=== PATIENT | male | born 1995 | race Caucasian/White ===

== ENCOUNTER → 2017-03-17 | Outpatient (CLI) | payer BC ==
--- NOTE | 2017-03-17 13:10 | DIAGNOSTIC IMAGING REPORT ---
TESTICULAR ULTRASOUND HISTORY: VARICOCELE COMPARISON: None. FINDINGS: Right testis: There are no intratesticular masses. Normal color flow. No hydrocele. The epididymis is unremarkable. Left testis: There are no intratesticular masses. Normal color flow. No hydrocele. The epididymis is unremarkable. Small left-sided varicocele. IMPRESSION: Normal bilateral testes. Small left-sided varicocele. Electronically signed by: Anderson Mancera M.D. 03/17/2017 1:09 PM Dictated Date/Time: 03/17/2017 1:05 PM
== END | disposition home or self-care (01) ==
LOC: C.ULTR 12:35
PROVIDERS: ATTEND Family Medicine Adolescent Medicine
DX: I86.1 Scrotal varices (principal)